=== PATIENT | male | born 1950 ===

== ENCOUNTER 2017-10-08 07:30 | Inpatient (IN) | payer OTHER ==
[~2017-10-08] VITALS: Ht 365.8 cm; Wt 113.9 kg
[~2017-10-08 07:30] MED LIST: APIX2.5T PO; APIX5TAB PO; ASPI-482 PO; ASPI-630 PO; ATOR10TA PO; Aspirin PO; CLOP75TA57 PO; ENOX40DI SQ; FURO-69 PO; GABA-586 PO; HEPARIN SODIUM 5,000 UNIT in IV NORMAL SALINE 500ML BAG 500 ML IRR ONE; HYDR-963 PO; Hydrocodone/Acetaminophen PO; IBUP-1027 PO; IBUP200T77 PO; IV RINGERS,LACTATED 1000ML 1,000 ML IV SCH; LIDOCAINE 1% PF 2 ML VIAL. ID PRN; LIDOCAINE 1% PF 48 ML, SODIUM BICARBONATE VIAL 12 MEQ in TOTAL VOLUME SYRINGE 60 ML ID ONE; MORPHINE SULFATE 2 MG/ML DISP.SYRIN. IV PRN; ONDANSETRON PF 4 MG/2 ML VIAL. IV PRN; Oxycodone Hcl/Acetaminophen PO; PROCHLORPERAZINE 10 MG/2 ML VIAL. IV PRN; WARF3TAB54 PO; WARF4TAB68 PO; fentaNYL PF VIAL 100 MCG/2 ML VIAL IV PRN
[2017-10-08] MEDS ORDERED: ATOR40TA PO (09:25)
[2017-10-08 10:01] LABS: BASO % 1 % (0-3); EOS % 11 % (0-3); HEMATOCRIT 45.4 % (39.0-53.0); HEMOGLOBIN 15.1 g/dL (13.0-17.5); LYMPH # 1.8 x10^3/uL (1.0-4.8); LYMPH % 27 % (24-48); MEAN CORPUSCULAR HEMOGLOBIN 31 pg (25-35); MEAN CORPUSCULAR HGB CONC 33 g/dL (31-37); MEAN CORPUSCULAR VOLUME 95 fL (79-100); MONO % 7 % (0-9); NEUT % 54 % (31-73); PLATELET COUNT 214 x10^3/uL (140-400); RED BLOOD COUNT 4.81 x10^6/uL (4.30-5.70); RED CELL DISTRIBUTION WIDTH 13.7 % (11.5-14.5); WHITE BLOOD COUNT 6.7 x10^3/uL (4.0-11.0)
[2017-10-08 10:17] LABS: CALCIUM 8.4 mg/dL (8.5-10.1); CREATININE 0.8 mg/dL (0.7-1.3); GFR 96.4; POTASSIUM 4.3 mmol/L (3.5-5.1); PROTHROMBIN TIME PATIENT 12.4 SEC (11.7-14.0)
[2017-10-08] MEDS ORDERED: ONDANSETRON PF 4 MG/2 ML VIAL. ONE (10:24)
[2017-10-08] MEDS ORDERED: ROCURONIUM 50 MG/5 ML VIAL. ONE ×2 (10:24→14:20)
[2017-10-08] MEDS ORDERED: DEXAMETHASONE SOD PHOS 20 MG/5 ML VIAL. ONE (10:24)
[2017-10-08] MEDS ORDERED: LIDOCAINE 2% PF Vial for OR 5 ML VIAL. ONE (10:24)
[2017-10-08] MEDS ORDERED: PROPOFOL 20 ML IV ONE (10:24)
[2017-10-08] MEDS ORDERED: fentaNYL PF VIAL 100 MCG/2 ML VIAL ONE ×2 (10:24→14:15)
[2017-10-08] MEDS ORDERED: THROMBIN TOPICAL 5,000 UNIT VIAL. ONE (11:51)
[2017-10-08] MEDS ORDERED: IOHEXOL 300 MG/ML 100ML VIAL. ONE (11:51)
[2017-10-08] MEDS ORDERED: SURGICEL FIBRILLAR 1X2 EACH. ONE (11:51)
[2017-10-08] MEDS ORDERED: GELATIN SPONGE SIZE 12-7MM SPONGE. ONE (11:51)
[2017-10-08] MEDS ORDERED: PAPAVERINE 60 MG/2 ML VIAL FOR OR ONLY. ONE (11:52)
[2017-10-08] MEDS ORDERED: HEPARIN SODIUM 5,000 UNIT/ML VIAL for PCVC. IV ONE (12:30)
--- NOTE | 2017-10-08 14:05 | HP ---
ADMIT DATE: 10/08/2017 HISTORY OF PRESENT ILLNESS: This is a 67-year-old male who has had a redo bypass graft in the right leg using spliced arm vein for ischemic ulceration. He has had a followup vein graft duplex examination, which showed a focal stenosis in the bypass graft, which was treated with percutaneous intervention. He showed a recurrent stenosis at this level for which he underwent a repeat percutaneous intervention and subsequent imaging studies showed recurrent stenosis. His previous arteriogram showed the area of stenosis extended over about 3 inches in the distal aspect of the proximal portion of the spliced vein graft. He is brought to the operating room today for surgical intervention with revision and interpositioning of a new segment of vein graft. He has had imaging studies performed. The only residual adequate vein is the basilic vein on the right. He has a remote history of tobacco use, which he has discontinued. He is on aspirin, Eliquis and Plavix. He stopped his Eliquis therapy, does take Neurontin 100 mg 3 times a day for neuropathy pain. PHYSICAL EXAMINATION: HEAD AND NECK: Unremarkable. Normal carotid upstrokes. No bruits. Neck is supple. CHEST: Breath sounds are equal and distant. CARDIAC: No murmur. ABDOMEN: Soft. EXTREMITIES: Peripheral pulses, he has excellent femoral pulses bilaterally, has 2+ bypass graft pulse in his right leg, absent pedal pulses, and all of his right lower extremity wounds are healed. IMPRESSION: Third recurrence of focal stenosis in previously placed spliced arm vein bypass graft to his below-knee popliteal artery. PLAN: Is for surgical intervention and revision with interposition right arm basilic vein. Procedure, risks, complications and alternatives have all been reviewed with the patient, who understands and agrees to proceed as outlined. JEFF TAVARES MD DR: MARY/patricia JOB#: [id number] / [id number]
[2017-10-08] MEDS ORDERED: SEVOFLURANE > 120 MINUTES. IH ONE (14:17)
[2017-10-08] MEDS ORDERED: PHENYLEPHRINE in 0.9% NACL PF 1 MG/10 ML SYRINGE. IV ONE (14:28)
[2017-10-08] MEDS ORDERED: PHENYLEPHRINE 10 MG/ML VIAL. ONE (14:28)
[2017-10-08] MEDS ORDERED: GLYCOPYRROLATE 1 MG/5 ML VIAL. ONE (14:48)
[2017-10-08] MEDS ORDERED: NEOSTIGMINE 10 MG/10 ML VIAL. ONE (15:32)
[2017-10-08] MEDS ORDERED: ONDANSETRON PF 4 MG/2 ML VIAL. IV PRN (16:00)
[2017-10-08] MEDS ORDERED: NALOXONE 0.4 MG/ML VIAL. IV PRN (16:00)
[2017-10-08] MEDS ORDERED: diphenhydrAMINE 50 MG/ML VIAL IV PRN (16:00)
[2017-10-08] MEDS ORDERED: PROCHLORPERAZINE 10 MG/2 ML VIAL. IV PRN (16:00)
[2017-10-08] MEDS ORDERED: ceFAZolin SODIUM 1 GM in IV DEXTROSE 5% 50 ML IV SCH (16:00)
[2017-10-08] MEDS ORDERED: diphenhydrAMINE HCL 25 MG CAPSULE PO PRN (16:00)
[2017-10-08] MEDS ORDERED: LABETALOL 20 MG/4 ML DISP.SYRIN. IVP PRN (16:00)
[2017-10-08] MEDS ORDERED: MORPHINE SULFATE 2 MG/ML DISP.SYRIN. IV PRN (16:00)
[2017-10-08] MEDS ORDERED: hydrALAZINE 20 MG/ML VIAL. IVP PRN (16:00)
[2017-10-08] MEDS ORDERED: SENNOSIDES/DOCUSATE 8.6/50MG TABLET. PO PRN (16:00)
[2017-10-08] MEDS ORDERED: 0.9 % SODIUM CHLORIDE 10 ML DISP.SYRIN. IV PRN (16:00)
--- NOTE | 2017-10-08 16:01 | PDOC ---
BRIEF OPERATIVE NOTE Date: Oct 08, 2017 Pre-Op Diagnosis Right leg vein bypass stenosis Post-Op Diagnosis same Procedure Performed Right leg vein bypass revision with right arm basilic vein Surgeon Dr. Chaney [place] [employer] Supervisor Naif Alvarez NP Anesthesia Type: General Blood Loss 50cc Specimens Obtained right leg bypass vein Findings doppler PT Complications none Operative Note see dictated operative note NAIF ALVAREZ PRICE LISTER Oct 08, 2017 16:01
--- NOTE | 2017-10-08 16:17 | OP ---
DATE OF SURGERY: 10/08/2017 PREOPERATIVE DIAGNOSIS: Vein graft stenosis from previously placed right femoral to below-knee popliteal artery bypass graft (spliced arm vein). POSTOPERATIVE DIAGNOSIS: Vein graft stenosis from previously placed right femoral to below-knee popliteal artery bypass graft (spliced arm vein). PROCEDURE PERFORMED: Graft revision with interposition segment of basilic vein harvested from the right arm. INDICATION: This is a 67-year-old male with history of severe peripheral vascular disease, had multiple previous procedures performed. The most recent operative procedure was a spliced arm vein bypass graft to the below-knee popliteal artery. This has remained patent. 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 He has had previous percutaneous treatments with drug-coated balloons to the segmental area of stenosis in the vein bypass graft. Unfortunately, following his last intervention the area of stenosis has recurred, now in excess of 75%. Vein mapping showed adequate basilic vein in the right arm for vein conduit. Recommendation was for surgical revision. DESCRIPTION OF PROCEDURE: The patient was given general anesthetic. Sahni catheter was placed in the urinary bladder under sterile conditions. He was prepped and draped in a sterile fashion. The vein graft was exposed through an incision medial to the right knee. It was isolated proximally. The area of stenotic vein was dissected free and the area of aneurysmal dilatation was also identified and dissection was continued down beyond this segment to where the vein resumes a normal diameter. A medial incision was placed in the right arm and the basilic vein was harvested, ligating side branches with 3-0 silk, clips were placed distally and the side branches were all divided. The junction of the basilic vein and the deep brachial vein was isolated. The basilic vein was clamped, divided and ligated with 3-0 silk suture. The distal aspects of the vein were also clamped, divided and ligated. The vein was then distended with heparinized saline solution and retrograde valve lysis was performed with a Garcia valvulotome. Sterile dressing was placed over the top of this. Attention was directed to the bypass graft. The patient had received 5000 units of intravenous heparin. The bypass graft was clamped proximally and distally with angled vascular clamps. The vein was amputated and opened longitudinally with the findings of significant fibrosis within this vein segment and some laminated clot. A spatulated end-to-end anastomosis was completed to the proximal vein. The vein was measured, trimmed and an end-to-end anastomosis was completed with the distal vein, both suture lines being constructed with 6-0 Prolene. Blood flow was instituted. The right lower extremity had excellent Doppler flow signal in the vein graft conduit and outflow vessels. The leg wound was closed with 2-0 Vicryl in deep and superficial subcutaneous tissues, 3-0 Vicryl approximated the subcuticular tissues and Dermabond skin glue was placed over the top of this. The arm wound was closed with 2-0 Vicryl in deep subcutaneous tissue, running 3-0 Vicryl in the subcuticular tissues, Dermabond, and a sterile dressing were applied and the patient moved from the operating room to recovery in satisfactory stable condition. Holly Garcia, certified nurse practitioner, was first mate. JEFF TAVARES MD DR: MARY/patricia JOB#: [id number] / [id number]
[2017-10-08] MEDS: fentaNYL PF VIAL 100 MCG/2 ML VIAL IV PRN ×2 (16:42→16:47)
[2017-10-08] MEDS: HYDROmorphone 2 MG/ML VIAL IV PRN ×2 (16:52→17:04)
[2017-10-08] MEDS: IV RINGERS,LACTATED 1000ML 1,000 ML IV SCH (17:00)
[2017-10-08] MEDS ORDERED: IBUPROFEN 800 MG TABLET. PO PRN (17:00)
[2017-10-08 17:31] VITALS: BP 139/88
[2017-10-08] MEDS: HYDROcodone/APAP 10/325 1 TAB TABLET PO PRN (18:20)
[2017-10-08] MEDS: ceFAZolin SODIUM IV Push 1 GM VIAL. IVP SCH (18:23)
[2017-10-08 18:30] VITALS: BP 139/88
[2017-10-08 19:00] VITALS: BP 124/82
[2017-10-08 19:30] VITALS: BP 114/60
[2017-10-08] MEDS: oxyCODONE IR 5 MG TABLET PO PRN (20:39)
[2017-10-08] MEDS ORDERED: GABAPENTIN 300 MG CAPSULE. PO SCH (21:00)
[2017-10-08] MEDS ORDERED: ATORVASTATIN CALCIUM 40 MG TABLET. PO SCH (21:00)
[2017-10-08 23:00] VITALS: BP 101/64
[2017-10-09] MEDS: oxyCODONE IR 5 MG TABLET PO PRN (01:04)
[2017-10-09] MEDS: ceFAZolin SODIUM IV Push 1 GM VIAL. IVP SCH ×2 (01:55→08:36)
[2017-10-09 03:00] VITALS: BP 99/58
[2017-10-09] MEDS: IV RINGERS,LACTATED 1000ML 1,000 ML IV SCH (06:20)
--- NOTE | 2017-10-09 06:29 | PDOC ---
Provider Note Provider Note POD # 1 Post op revision of rt fem -pop graft with vein from rt arm Dressings dry and intact warm rt foot H/H 15/45 Creat 0.8, K 4.3 Imp Stable and doing well Plan : discharge home DEEPAK KRISHNAN MD Oct 09, 2017 06:29
--- NOTE | 2017-10-09 06:32 | DISCH ---
DISCHARGE INSTRUCTIONS Condition on Discharge Condition on Discharge: Stable Activity After Discharge Activity Instructions for Disc: No restrictions, Activity as tolerated, Progressive ambulation Diet after Discharge Diet after Discharge: Cardiac Wound Incision Care Wound/Incision Care: May get incision wet Follow-Up Follow up with: Ghanshyam Chaney [phone] on 3 Oct DEEPAK KRISHNAN MD Oct 09, 2017 06:32
[2017-10-09 07:00] VITALS: BP 133/68
[2017-10-09 08:40] LABS: BASO # 0.1 x10^3/uL (0.0-0.2); BASO % 0 % (0-3); EOS % 0 % (0-3); HEMATOCRIT 45.7 % (39.0-53.0); HEMOGLOBIN 14.7 g/dL (13.0-17.5); LYMPH # 1.6 x10^3/uL (1.0-4.8); LYMPH % 13 % (24-48); MEAN CORPUSCULAR HEMOGLOBIN 31 pg (25-35); MEAN CORPUSCULAR HGB CONC 32 g/dL (31-37); MEAN CORPUSCULAR VOLUME 96 fL (79-100); MONO % 5 % (0-9); NEUT % 81 % (31-73); PLATELET COUNT 236 x10^3/uL (140-400); RED BLOOD COUNT 4.75 x10^6/uL (4.30-5.70); RED CELL DISTRIBUTION WIDTH 13.7 % (11.5-14.5); WHITE BLOOD COUNT 12.1 x10^3/uL (4.0-11.0)
[2017-10-09 08:43] LABS: CALCIUM 8.6 mg/dL (8.5-10.1); CREATININE 0.9 mg/dL (0.7-1.3); GFR 84.2; MAGNESIUM 2.2 mg/dL (1.8-2.4); POTASSIUM 4.5 mmol/L (3.5-5.1)
[2017-10-09] MEDS: HYDROcodone/APAP 10/325 1 TAB TABLET PO PRN (08:54)
[2017-10-09] MEDS ORDERED: FUROSEMIDE 20 MG TABLET PO SCH (09:00)
[2017-10-09] MEDS ORDERED: CLOPIDOGREL BISULFATE 75 MG TABLET PO SCH (09:00)
[2017-10-09] MEDS ORDERED: ASPIRIN CHEWABLE 81 MG TABLET. PO SCH (09:00)
[2017-10-09] MEDS ORDERED: ELECTROLYTE (NON-ICU) PROTOCOL MC SCH (09:00)
[2017-10-09] MEDS ORDERED: ANTI-COAG MONITOR BY PHARMACY. MC PRN (10:45)
[2017-10-09] MEDS ORDERED: APIXABAN 2.5 MG TABLET. PO SCH (21:00)
--- NOTE | 2017-10-11 14:09 | PATHOLOGY ---
PATHOLOGY REPORT * * * * * * * * FINAL DIAGNOSIS: Segments of vein and attached fibroadipose tissue, revision right leg saphenous vein bypass graft: - Phebectasia and phlebosclerosis with focal calcification. (JPM:[id number]; 10/11/2017) REPORT ELECTRONICALLY SIGNED BY: Jolynn Panda M.D. DATE/TIME: 10/11/2017 14:08 * * * * * * * * GROSS PATHOLOGY: Received in formalin labeled "Jolynn Harrison, saphenous vein bypass graft segment" and consists of a partially opened, tubular segment of vascular tissue measuring 4.9 cm in length by 1.2 cm in diameter and a separate annular portion of vascular tissue measuring 1 cm in diameter by 0.2 cm in length. The wall ranges in thickness from less than 0.1 cm to 0.3 cm. There is a focus of possible calcific changes identified. Councilperson sections are submitted as A1. INITIAL CPT CODE(S): 30854 Professional services performed [place] [facility] [place] [address] Technical services performed by [facility] at [address] [place] [address] [address], [place] [address]. SPECIMEN(S) RECEIVED: A.Saphenous vein bypass graft segment CLINICAL HISTORY: PVD PATIENT: JOLYNN HARRISON /AGE: 1008/20/1950 (Age: 67) PATIENT #: [id number] ALT CASE #: SPECIMEN COLLECTION DATE: 10/08/2017 SPECIMEN RECEIVED DATE: 10/09/2017 [facility] - [address] [place] [address] - PHONE: [phone] * * * END OF REPORT * * *
--- NOTE | 2017-10-19 17:04 | DS ---
DATE OF DISCHARGE: 10/09/2017 DISCHARGE DIAGNOSES: 1. Peripheral arterial disease. 2. Recurrent stenosis of the right lower extremity bypass graft. 3. Previous smoking history with chronic obstructive pulmonary disease. PROCEDURES: Graft revision with interposition segment of basilic vein harvested from the right arm to the right lower extremity. CONSULTANTS: None. BRIEF HISTORY: This is a 67-year-old male who has had a redo bypass graft in his right leg using spliced arm vein from an ischemic ulcer for an ischemic ulceration. He has had followup vein graft duplex examinations which show a focal stenosis in the bypass graft, which was treated with percutaneous intervention. He should have recurrent stenosis at this level for which he underwent a repeat percutaneous intervention and subsequent imaging studies showed recurrent stenosis. He is admitted at this time to undergo an elective revision of the bypass graft with interpositioning of a new segment of vein graft, which will be obtained from the right arm. HOSPITAL COURSE: The patient underwent the aforementioned operative procedure. The patient's postoperative course was uncomplicated. On postoperative day #1, the patient's dressing was dry and intact and his right foot was warm. His vital signs were stable as well as his laboratory data. The patient was most tolerant of his diet and activity progression. His pain was well controlled. The patient was deemed stable for discharge to home. DISCHARGE INSTRUCTIONS: 1. Please refer to the medication reconciliation list. 2. The patient has been scheduled follow up with Dr. Chaney in 2-3 weeks. 3. The patient was educated on the importance of remaining compliant on his medication regimen, which includes antiplatelet therapy and statin therapy. 4. The patient was educated on the need to continue smoking cessation and this will continue to be followed up as an outpatient when the patient returns to see Dr. Chaney in the office. JEFF CHANEY MD DR: CONNER/patricia JOB#: [id number] / [id number]
== END 2017-10-09 14:10 | disposition home or self-care (01) | DRG 254 ==
LOC: SURHIP 09:00 → 4 NORTH 17:30
PROC: 05BB0ZZ Excision of Right Basilic Vein, Open Approach (ICD-10-PCS; 2017-10-08)
PROC: 06R Lower Veins, Replacement (ICD-10-PCS; principal; 2017-10-08 11:00)
DX: T82.858A Stenosis of other vascular prosthetic devices, implants and grafts, initial encounter (principal); G62.9 Polyneuropathy, unspecified; Y92.89 Other specified places as the place of occurrence of the external cause; Y83.2 Surgical operation with anastomosis, bypass or graft as the cause of abnormal reaction of the patient, or of later complication, without mention of misadventure at the time of the procedure; I73.9 Peripheral vascular disease, unspecified; Z79.82 Long term (current) use of aspirin; Z79.899 Other long term (current) drug therapy; Z87.891 Personal history of nicotine dependence
CPT/HCPCS: 36415; 80048; 83735; 85025; 85610; 85730; 88304; J0690; J1100; J1170; J1644; J2370; J2405; J2440; J2704; J2710; J3010; J3490; J7040; J7120; Q9967; J2001